=== PATIENT | female | born 1955 | race Caucasian/White ===

== ENCOUNTER 2017-07-03 16:44 | Inpatient (IN) | payer OTHER ==
[~2017-07-03] VITALS: Ht 160 cm; Wt 63.2 kg
[~2017-07-03 16:44] MED LIST: BUPR150T6 PO; CLON-365 PO; ESOM20CA PO; FLUO20TA25 PO; HYDR50CA2 PO; LISI-170 PO; METO50TA82 PO; NIFE20CA PO; SIMV20TA3 PO
[2017-07-03] MEDS ORDERED: SODIUM CHLORIDE 0.9% 1,000ML IVBOLUS ONE (17:00)
[2017-07-03] MEDS ORDERED: SODIUM CHLORIDE FLUSH 10ML SYR IVF ONE (17:00)
[2017-07-03 17:32] LABS: BASOPHILS % (AUTO) 1 % (0-1); EOSINOPHILS # (AUTO) 0.03 x10^3/uL (0-0.4); EOSINOPHILS % (AUTO) 0 % (1-7); LYMPHOCYTES # (AUTO) 3.45 x10^3/uL (1-3.4); LYMPHOCYTES % (AUTO) 32 % (22-44); MD NO; MEAN CORPUSCULAR HEMOGLOBIN 34.1 pg (27.0-34.8); MEAN CORPUSCULAR HGB CONC 34.3 g/dL (32.4-35.8); MEAN CORPUSCULAR VOLUME 99.4 fL (80-100); MONOCYTES # (AUTO) 0.43 x10^3/uL (0.2-0.8); MONOCYTES % (AUTO) 4 % (2-9); NEUTROPHILS # (AUTO) 6.71 x10^3/uL (1.8-6.8); NEUTROPHILS % (AUTO) 63 % (42-75); PLATELET COUNT 391 x10^3/uL (130-400); RED CELL DISTRIBUTION WIDTH 13.5 % (9.6-15.2)
[2017-07-03 17:42] LABS: MICROSCOPIC NOT IND
[2017-07-03 17:44] LABS: ALBUMIN 2.5 g/dL (3.4-5.0); ANION GAP 14 mmol/L (5-15); CALCIUM 8.3 mg/dL (8.5-10.1); CHLORIDE 95 mmol/L (98-107)
[2017-07-03 17:47] LABS: SALICYLATE LEVEL < 1.7 mg/dL (2.8-20.0)
[2017-07-03 17:49] LABS: CULTURE INDICATED? NO
[2017-07-03 17:53] LABS: ACETAMINOPHEN < 2 mcg/mL (10-30); ALANINE AMINOTRANSFERASE 75 U/L (12-78); ALKALINE PHOSPHATASE 258 U/L (45-117); BILIRUBIN,TOTAL 0.7 mg/dL (0.2-1.0); CREATININE 1.19 mg/dL (0.55-1.02); TOTAL PROTEIN 6.9 g/dL (6.4-8.2)
[2017-07-03 19:07] LABS: ACETONE, SERUM Negative (Negative)
[2017-07-03 19:07] LABS: CLOSTRIDIUM DIFFICILE ANTIGEN POSITIVE
[2017-07-03 19:12] LABS: CLOSTRIDIUM DIFFICILE TOXIN NEGATIVE (Negative)
[2017-07-03] MEDS ORDERED: ACETAMINOPHEN 325 MG TABLET PO PRN (19:30)
[2017-07-03] MEDS ORDERED: hydrALAzine 20 MG/ML, 1ML IVPush PRN (19:30)
[2017-07-03] MEDS ORDERED: LORazepam 2 MG/ML, 1ML IV PRN ×3 (19:30)
[2017-07-03 20:43] VITALS: BP 125/80
[2017-07-03 21:05] VITALS: BP 125/80
[2017-07-03] MEDS: METOPROLOL TARTRATE 50 MG TABLET PO SCH (21:52)
[2017-07-03] MEDS: SIMVASTATIN 20 MG TABLET PO SCH (21:53)
[2017-07-03] MEDS: THIAMINE 100 MG, MVI ADULT 10 ML, FOLIC ACID 1 MG in D5%-0.9% NACL 1,000 ML IV SCH (21:53)
[2017-07-03] MEDS: ENOXAPARIN 40 MG/0.4 ML SQ SCH (21:54)
[2017-07-04 03:02] VITALS: BP 151/92
[2017-07-04] MEDS: LORazepam 2 MG/ML, 1ML IV PRN ×4 (03:42→22:54)
[2017-07-04 04:48] LABS: ALANINE AMINOTRANSFERASE 60 U/L (12-78); ALBUMIN 2.3 g/dL (3.4-5.0); ANION GAP 10 mmol/L (5-15); CALCIUM 7.3 mg/dL (8.5-10.1); CHLORIDE 101 mmol/L (98-107); CREATININE 1.13 mg/dL (0.55-1.02)
[2017-07-04 04:50] LABS: ALKALINE PHOSPHATASE 218 U/L (45-117); BILIRUBIN,TOTAL 0.9 mg/dL (0.2-1.0); TOTAL PROTEIN 5.8 g/dL (6.4-8.2)
[2017-07-04 05:09] LABS: BASOPHILS # (AUTO) 0.03 x10^3/uL (0-0.1); BASOPHILS % (AUTO) 0 % (0-1); EOSINOPHILS # (AUTO) 0.08 x10^3/uL (0-0.4); EOSINOPHILS % (AUTO) 1 % (1-7); LYMPHOCYTES # (AUTO) 2.45 x10^3/uL (1-3.4); LYMPHOCYTES % (AUTO) 31 % (22-44); MD NO; MEAN CORPUSCULAR HEMOGLOBIN 33.9 pg (27.0-34.8); MEAN CORPUSCULAR HGB CONC 34.3 g/dL (32.4-35.8); MEAN CORPUSCULAR VOLUME 98.8 fL (80-100); MEAN PLATELET VOLUME 8.2 fL (7.4-10.4); MONOCYTES # (AUTO) 0.45 x10^3/uL (0.2-0.8); MONOCYTES % (AUTO) 6 % (2-9); NEUTROPHILS # (AUTO) 4.94 x10^3/uL (1.8-6.8); NEUTROPHILS % (AUTO) 62 % (42-75); PLATELET COUNT 285 x10^3/uL (130-400); RED BLOOD COUNT 3.16 x10^6/uL (3.82-5.3); RED CELL DISTRIBUTION WIDTH 13.5 % (9.6-15.2)
[2017-07-04] MEDS: D5%-0.9% NACL+KCL 20MEQ 1,000 ML IV SCH ×4 (05:29→22:05)
[2017-07-04 06:39] VITALS: BP 157/97
[2017-07-04] MEDS ORDERED: MAGNESIUM SULFATE PMX 4GM/100M 100 ML IV ONE (08:00)
[2017-07-04] MEDS: LISINOPRIL 20 MG TABLET PO SCH (08:42)
[2017-07-04] MEDS: METOPROLOL TARTRATE 50 MG TABLET PO SCH ×2 (08:43→19:47)
[2017-07-04 12:20] VITALS: BP 99/63
[2017-07-04] MEDS: THIAMINE 100 MG, MVI ADULT 10 ML, FOLIC ACID 1 MG in D5%-0.9% NACL 1,000 ML IV SCH (19:46)
[2017-07-04] MEDS: SIMVASTATIN 20 MG TABLET PO SCH (19:46)
[2017-07-04] MEDS: ENOXAPARIN 40 MG/0.4 ML SQ SCH (19:47)
[2017-07-04 20:00] VITALS: BP 108/74
[2017-07-04] MEDS ORDERED: CALCIUM CARBONATE 500 MG TAB.CHEW PO ONE (23:30)
[2017-07-05 02:00] VITALS: BP 122/74
[2017-07-05] MEDS: D5%-0.9% NACL+KCL 20MEQ 1,000 ML IV SCH (05:07)
[2017-07-05] MEDS: LORazepam 2 MG/ML, 1ML IV PRN ×5 (05:07→20:20)
[2017-07-05 05:31] LABS: BASOPHILS # (AUTO) 0.02 x10^3/uL (0-0.1); BASOPHILS % (AUTO) 0 % (0-1); EOSINOPHILS # (AUTO) 0.18 x10^3/uL (0-0.4); EOSINOPHILS % (AUTO) 3 % (1-7); LYMPHOCYTES # (AUTO) 2.64 x10^3/uL (1-3.4); LYMPHOCYTES % (AUTO) 37 % (22-44); MD NO; MEAN CORPUSCULAR HEMOGLOBIN 34.4 pg (27.0-34.8); MEAN CORPUSCULAR HGB CONC 34.3 g/dL (32.4-35.8); MEAN CORPUSCULAR VOLUME 100.2 fL (80-100); MEAN PLATELET VOLUME 8.3 fL (7.4-10.4); MONOCYTES # (AUTO) 0.31 x10^3/uL (0.2-0.8); MONOCYTES % (AUTO) 4 % (2-9); NEUTROPHILS # (AUTO) 3.95 x10^3/uL (1.8-6.8); NEUTROPHILS % (AUTO) 56 % (42-75); PLATELET COUNT 193 x10^3/uL (130-400); RED BLOOD COUNT 2.73 x10^6/uL (3.82-5.3); RED CELL DISTRIBUTION WIDTH 13.7 % (9.6-15.2)
[2017-07-05 05:40] LABS: ANION GAP 10 mmol/L (5-15); CHLORIDE 110 mmol/L (98-107)
[2017-07-05 05:43] LABS: ALANINE AMINOTRANSFERASE 47 U/L (12-78); ALKALINE PHOSPHATASE 190 U/L (45-117); BILIRUBIN,TOTAL 0.6 mg/dL (0.2-1.0); CALCIUM 7.4 mg/dL (8.5-10.1); CREATININE 1.06 mg/dL (0.55-1.02); TOTAL PROTEIN 5.4 g/dL (6.4-8.2)
[2017-07-05 07:05] VITALS: BP 136/85
[2017-07-05] MEDS: LISINOPRIL 20 MG TABLET PO SCH (08:34)
[2017-07-05] MEDS: METOPROLOL TARTRATE 50 MG TABLET PO SCH ×2 (08:35→20:00)
[2017-07-05] MEDS: SODIUM CHLORIDE 0.9% 1,000 ML IV SCH ×2 (08:53→16:30)
[2017-07-05] MEDS ORDERED: LORazepam 0.5MG TABLET ONE ×2 (10:09→20:18)
[2017-07-05] MEDS ORDERED: FAMOTIDINE 20 MG TABLET ONE (10:09)
[2017-07-05] MEDS: FAMOTIDINE 20 MG TABLET PO SCH ×2 (10:16→20:00)
[2017-07-05] MEDS: ALUMINUM/MAG/SIMETHICONE 30 ML UDC PO PRN (11:45)
[2017-07-05 12:57] VITALS: BP 105/69
[2017-07-05] MEDS ORDERED: LORazepam 1MG TABLET ONE (13:53)
[2017-07-05] MEDS: VANCOMYCIN 50 MG/ML ORAL SUSP PO SCH ×2 (13:56→20:01)
[2017-07-05] MEDS: THIAMINE 100 MG, MVI ADULT 10 ML, FOLIC ACID 1 MG in D5%-0.9% NACL 1,000 ML IV SCH (19:59)
[2017-07-05 20:00] VITALS: BP 121/76
[2017-07-05] MEDS: ENOXAPARIN 40 MG/0.4 ML SQ SCH (20:01)
[2017-07-05] MEDS: SIMVASTATIN 20 MG TABLET PO SCH (20:01)
[2017-07-06] MEDS ORDERED: LORazepam 0.5MG TABLET ONE ×2 (01:10→06:13)
[2017-07-06] MEDS: VANCOMYCIN 50 MG/ML ORAL SUSP PO SCH ×4 (01:14→19:48)
[2017-07-06] MEDS: ALUMINUM/MAG/SIMETHICONE 30 ML UDC PO PRN ×4 (01:14→20:07)
[2017-07-06] MEDS: LORazepam 2 MG/ML, 1ML IV PRN ×4 (01:15→20:07)
[2017-07-06 02:00] VITALS: BP 134/89
[2017-07-06 05:13] LABS: ANION GAP 8 mmol/L (5-15); BASOPHILS # (AUTO) 0.02 x10^3/uL (0-0.1); BASOPHILS % (AUTO) 0 % (0-1); CALCIUM 7.7 mg/dL (8.5-10.1); CHLORIDE 117 mmol/L (98-107); EOSINOPHILS # (AUTO) 0.26 x10^3/uL (0-0.4); EOSINOPHILS % (AUTO) 4 % (1-7); LYMPHOCYTES % (AUTO) 38 % (22-44); MD NO; MEAN CORPUSCULAR HEMOGLOBIN 34.6 pg (27.0-34.8); MEAN CORPUSCULAR HGB CONC 34.2 g/dL (32.4-35.8); MEAN CORPUSCULAR VOLUME 101.3 fL (80-100); MONOCYTES # (AUTO) 0.38 x10^3/uL (0.2-0.8); MONOCYTES % (AUTO) 5 % (2-9); NEUTROPHILS # (AUTO) 3.94 x10^3/uL (1.8-6.8); NEUTROPHILS % (AUTO) 53 % (42-75); PLATELET COUNT 196 x10^3/uL (130-400); RED BLOOD COUNT 2.62 x10^6/uL (3.82-5.3); RED CELL DISTRIBUTION WIDTH 13.5 % (9.6-15.2)
[2017-07-06 05:42] LABS: ALANINE AMINOTRANSFERASE 46 U/L (12-78); ALKALINE PHOSPHATASE 172 U/L (45-117); BILIRUBIN,TOTAL 0.5 mg/dL (0.2-1.0); CREATININE 0.93 mg/dL (0.55-1.02); TOTAL PROTEIN 5.5 g/dL (6.4-8.2)
[2017-07-06 05:45] LABS: FOLATE LEVEL > 20.0 ng/mL (3.1-17.5)
[2017-07-06 07:20] VITALS: BP 124/78
[2017-07-06 08:00] VITALS: BP 137/87
[2017-07-06] MEDS: FAMOTIDINE 20 MG TABLET PO SCH ×2 (09:41→19:48)
[2017-07-06] MEDS: LISINOPRIL 20 MG TABLET PO SCH (09:41)
[2017-07-06] MEDS: METOPROLOL TARTRATE 50 MG TABLET PO SCH ×2 (09:41→19:48)
[2017-07-06] MEDS: LACTATED RINGERS 1,000 ML IV SCH (09:43)
[2017-07-06 12:35] LABS: CRYPTOSPORIDIUM ANTIGEN Negative (Negative)
[2017-07-06 13:09] VITALS: BP 111/75
[2017-07-06 18:47] VITALS: BP 105/71
[2017-07-06] MEDS: ENOXAPARIN 40 MG/0.4 ML SQ SCH (19:48)
[2017-07-06] MEDS: SIMVASTATIN 20 MG TABLET PO SCH (19:48)
[2017-07-06] MEDS: THIAMINE 100 MG, MVI ADULT 10 ML, FOLIC ACID 1 MG in D5%-0.9% NACL 1,000 ML IV SCH (21:28)
[2017-07-07 00:36] VITALS: BP 129/82
[2017-07-07] MEDS: ALUMINUM/MAG/SIMETHICONE 30 ML UDC PO PRN ×4 (02:06→20:30)
[2017-07-07] MEDS: LORazepam 2 MG/ML, 1ML IV PRN ×4 (02:07→21:39)
[2017-07-07] MEDS: VANCOMYCIN 50 MG/ML ORAL SUSP PO SCH ×4 (02:07→20:30)
[2017-07-07] MEDS: LACTATED RINGERS 1,000 ML IV SCH (04:12)
[2017-07-07 05:23] LABS: EOSINOPHILS # (AUTO) 0.28 x10^3/uL (0-0.4); MD NO; RED CELL DISTRIBUTION WIDTH 13.8 % (9.6-15.2)
[2017-07-07 05:34] LABS: BASOPHILS # (AUTO) 0.01 x10^3/uL (0-0.1); BASOPHILS % (AUTO) 0 % (0-1); EOSINOPHILS % (AUTO) 4 % (1-7); LYMPHOCYTES # (AUTO) 2.83 x10^3/uL (1-3.4); LYMPHOCYTES % (AUTO) 35 % (22-44); MEAN CORPUSCULAR HEMOGLOBIN 34.1 pg (27.0-34.8); MEAN CORPUSCULAR HGB CONC 33.7 g/dL (32.4-35.8); MEAN CORPUSCULAR VOLUME 101.2 fL (80-100); MEAN PLATELET VOLUME 8.1 fL (7.4-10.4); MONOCYTES % (AUTO) 6 % (2-9); NEUTROPHILS # (AUTO) 4.42 x10^3/uL (1.8-6.8); NEUTROPHILS % (AUTO) 55 % (42-75); PLATELET COUNT 195 x10^3/uL (130-400); RED BLOOD COUNT 2.63 x10^6/uL (3.82-5.3)
[2017-07-07 05:40] LABS: ALBUMIN 2.1 g/dL (3.4-5.0); CHLORIDE 115 mmol/L (98-107)
[2017-07-07 05:46] LABS: ALANINE AMINOTRANSFERASE 47 U/L (12-78); ALKALINE PHOSPHATASE 175 U/L (45-117); ANION GAP 8 mmol/L (5-15); BILIRUBIN,TOTAL 0.7 mg/dL (0.2-1.0); CALCIUM 7.7 mg/dL (8.5-10.1); CREATININE 1.02 mg/dL (0.55-1.02); TOTAL PROTEIN 5.4 g/dL (6.4-8.2)
[2017-07-07 06:46] VITALS: BP 126/72
[2017-07-07] MEDS ORDERED: MAGNESIUM SULFATE PMX 4GM/100M 100 ML IV ONE (08:00)
[2017-07-07] MEDS: NEUTRA PHOS K 250 MG TABLET PO SCH ×3 (09:23→20:30)
[2017-07-07] MEDS: METOPROLOL TARTRATE 50 MG TABLET PO SCH ×2 (09:23→20:30)
[2017-07-07] MEDS: LISINOPRIL 20 MG TABLET PO SCH (09:23)
[2017-07-07] MEDS: BUPROPION SR 150 MG TABLET PO SCH (09:23)
[2017-07-07] MEDS: FLUOXETINE HCL 20 MG CAPSULE PO SCH (09:23)
[2017-07-07 13:11] VITALS: BP 94/63
[2017-07-07 19:23] VITALS: BP 140/83
[2017-07-07] MEDS: SIMVASTATIN 20 MG TABLET PO SCH (20:30)
[2017-07-07] MEDS: ENOXAPARIN 40 MG/0.4 ML SQ SCH (20:30)
[2017-07-07] MEDS: THIAMINE 100 MG, MVI ADULT 10 ML, FOLIC ACID 1 MG in D5%-0.9% NACL 1,000 ML IV SCH (21:39)
[2017-07-08 00:30] VITALS: BP 143/91
[2017-07-08] MEDS: VANCOMYCIN 50 MG/ML ORAL SUSP PO SCH ×4 (03:33→21:28)
[2017-07-08] MEDS: LACTATED RINGERS 1,000 ML IV SCH ×2 (04:25→13:09)
[2017-07-08] MEDS: ALUMINUM/MAG/SIMETHICONE 30 ML UDC PO PRN ×5 (04:26→21:29)
[2017-07-08 05:15] LABS: BASOPHILS # (AUTO) 0.02 x10^3/uL (0-0.1); BASOPHILS % (AUTO) 0 % (0-1); EOSINOPHILS # (AUTO) 0.21 x10^3/uL (0-0.4); EOSINOPHILS % (AUTO) 3 % (1-7); LYMPHOCYTES % (AUTO) 33 % (22-44); MD NO; MEAN CORPUSCULAR HEMOGLOBIN 33.8 pg (27.0-34.8); MEAN CORPUSCULAR HGB CONC 33.9 g/dL (32.4-35.8); MEAN CORPUSCULAR VOLUME 99.7 fL (80-100); MEAN PLATELET VOLUME 8.2 fL (7.4-10.4); MONOCYTES # (AUTO) 0.65 x10^3/uL (0.2-0.8); MONOCYTES % (AUTO) 8 % (2-9); NEUTROPHILS # (AUTO) 4.45 x10^3/uL (1.8-6.8); NEUTROPHILS % (AUTO) 56 % (42-75); PLATELET COUNT 220 x10^3/uL (130-400); RED BLOOD COUNT 2.65 x10^6/uL (3.82-5.3); RED CELL DISTRIBUTION WIDTH 13.6 % (9.6-15.2)
[2017-07-08 05:21] LABS: ALBUMIN 2.2 g/dL (3.4-5.0); ANION GAP 8 mmol/L (5-15); CHLORIDE 110 mmol/L (98-107)
[2017-07-08 05:26] LABS: ALANINE AMINOTRANSFERASE 45 U/L (12-78); ALKALINE PHOSPHATASE 179 U/L (45-117); BILIRUBIN,TOTAL 0.7 mg/dL (0.2-1.0); CREATININE 0.93 mg/dL (0.55-1.02); TOTAL PROTEIN 5.8 g/dL (6.4-8.2)
[2017-07-08 07:43] VITALS: BP 155/93
[2017-07-08] MEDS: NEUTRA PHOS K 250 MG TABLET PO SCH ×2 (08:34→16:08)
[2017-07-08] MEDS: LISINOPRIL 20 MG TABLET PO SCH (08:34)
[2017-07-08] MEDS: FLUOXETINE HCL 20 MG CAPSULE PO SCH (08:35)
[2017-07-08] MEDS: BUPROPION SR 150 MG TABLET PO SCH (08:35)
[2017-07-08] MEDS: METOPROLOL TARTRATE 50 MG TABLET PO SCH ×2 (08:35→21:29)
[2017-07-08] MEDS ORDERED: LORazepam 1MG TABLET ONE (08:44)
[2017-07-08] MEDS: LORazepam 1MG TABLET PO PRN (08:51)
[2017-07-08] MEDS ORDERED: LORazepam 1MG TABLET PO PRN ×4 (10:30)
[2017-07-08] MEDS: ONDANSETRON ODT 4 MG PO PRN (10:49)
[2017-07-08 12:03] VITALS: BP 105/73
[2017-07-08] MEDS: metroNIDAZOLE 500 MG TABLET PO SCH ×2 (16:08→21:29)
[2017-07-08 21:15] VITALS: BP 125/80
[2017-07-08] MEDS: THIAMINE 100 MG, MVI ADULT 10 ML, FOLIC ACID 1 MG in D5%-0.9% NACL 1,000 ML IV SCH (21:28)
[2017-07-08] MEDS: ENOXAPARIN 40 MG/0.4 ML SQ SCH (21:28)
[2017-07-08] MEDS: SIMVASTATIN 20 MG TABLET PO SCH (21:29)
[2017-07-09 00:11] VITALS: BP 122/79
[2017-07-09] MEDS: VANCOMYCIN 50 MG/ML ORAL SUSP PO SCH ×4 (03:48→21:05)
[2017-07-09] MEDS: LACTATED RINGERS 1,000 ML IV SCH ×3 (03:48→23:00)
[2017-07-09 07:00] VITALS: BP_SYST 134; BP_SYST 93; BP_DIAS 60; BP_DIAS 83
[2017-07-09] MEDS: FLUOXETINE HCL 20 MG CAPSULE PO SCH (09:24)
[2017-07-09] MEDS: BUPROPION SR 150 MG TABLET PO SCH (09:24)
[2017-07-09] MEDS: ONDANSETRON ODT 4 MG PO PRN (09:25)
[2017-07-09] MEDS: metroNIDAZOLE 500 MG TABLET PO SCH ×3 (09:25→21:04)
[2017-07-09] MEDS: LISINOPRIL 20 MG TABLET PO SCH (09:25)
[2017-07-09] MEDS: METOPROLOL TARTRATE 50 MG TABLET PO SCH ×2 (09:25→21:04)
[2017-07-09] MEDS: ALUMINUM/MAG/SIMETHICONE 30 ML UDC PO PRN ×2 (09:41→15:34)
[2017-07-09] MEDS: LORazepam 1MG TABLET PO PRN (09:42)
[2017-07-09 14:00] VITALS: BP 122/75
[2017-07-09 18:55] VITALS: BP 121/82
[2017-07-09] MEDS: THIAMINE 100 MG, MVI ADULT 10 ML, FOLIC ACID 1 MG in D5%-0.9% NACL 1,000 ML IV SCH (21:03)
[2017-07-09] MEDS: ENOXAPARIN 40 MG/0.4 ML SQ SCH (21:04)
[2017-07-09] MEDS: FAMOTIDINE 20 MG TABLET PO SCH (21:04)
[2017-07-09] MEDS: SIMVASTATIN 20 MG TABLET PO SCH (21:04)
[2017-07-10 02:19] VITALS: BP 146/89
[2017-07-10 02:32] VITALS: BP 147/88
[2017-07-10] MEDS: ALUMINUM/MAG/SIMETHICONE 30 ML UDC PO PRN (02:50)
[2017-07-10] MEDS: VANCOMYCIN 50 MG/ML ORAL SUSP PO SCH ×4 (02:51→20:42)
[2017-07-10 05:09] LABS: BASOPHILS # (AUTO) 0.02 x10^3/uL (0-0.1); BASOPHILS % (AUTO) 1 % (0-1); EOSINOPHILS # (AUTO) 0.11 x10^3/uL (0-0.4); EOSINOPHILS % (AUTO) 2 % (1-7); LYMPHOCYTES # (AUTO) 1.59 x10^3/uL (1-3.4); LYMPHOCYTES % (AUTO) 33 % (22-44); MD NO; MEAN CORPUSCULAR HEMOGLOBIN 34.5 pg (27.0-34.8); MEAN CORPUSCULAR HGB CONC 34.4 g/dL (32.4-35.8); MEAN CORPUSCULAR VOLUME 100.5 fL (80-100); MEAN PLATELET VOLUME 8.1 fL (7.4-10.4); MONOCYTES # (AUTO) 0.83 x10^3/uL (0.2-0.8); MONOCYTES % (AUTO) 17 % (2-9); NEUTROPHILS # (AUTO) 2.34 x10^3/uL (1.8-6.8); NEUTROPHILS % (AUTO) 48 % (42-75); PLATELET COUNT 327 x10^3/uL (130-400); RED BLOOD COUNT 2.59 x10^6/uL (3.82-5.3); RED CELL DISTRIBUTION WIDTH 13.9 % (9.6-15.2)
[2017-07-10 05:15] LABS: ALBUMIN 2.1 g/dL (3.4-5.0); ANION GAP 9 mmol/L (5-15); CALCIUM 8.1 mg/dL (8.5-10.1); CHLORIDE 108 mmol/L (98-107)
[2017-07-10 05:18] LABS: ALANINE AMINOTRANSFERASE 45 U/L (12-78); ALKALINE PHOSPHATASE 215 U/L (45-117); BILIRUBIN,TOTAL 0.9 mg/dL (0.2-1.0); CREATININE 1.04 mg/dL (0.55-1.02); TOTAL PROTEIN 5.9 g/dL (6.4-8.2)
[2017-07-10 07:51] VITALS: BP 126/80
[2017-07-10] MEDS ORDERED: SODIUM PHOSPHATE 4 MEQ/ML IV SCH (09:00)
[2017-07-10] MEDS ORDERED: SODIUM PHOSPHATE 30 MMOL in SODIUM CHLORIDE 0.9% 500 ML IV ONE (09:00)
[2017-07-10] MEDS ORDERED: MAGNESIUM SULFATE PMX 4GM/100M 100 ML IV ONE (09:00)
[2017-07-10] MEDS: LACTATED RINGERS 1,000 ML IV SCH ×2 (10:05→20:40)
[2017-07-10] MEDS: FAMOTIDINE 20 MG TABLET PO SCH ×2 (10:06→20:42)
[2017-07-10] MEDS: FLUOXETINE HCL 20 MG CAPSULE PO SCH (10:06)
[2017-07-10] MEDS: THIAMINE 100MG TABLET PO SCH ×2 (10:06→20:41)
[2017-07-10] MEDS: metroNIDAZOLE 500 MG TABLET PO SCH ×3 (10:06→20:41)
[2017-07-10] MEDS: FOLIC ACID 1 MG TABLET PO SCH (10:07)
[2017-07-10] MEDS: BUPROPION SR 150 MG TABLET PO SCH (10:07)
[2017-07-10] MEDS: METOPROLOL TARTRATE 50 MG TABLET PO SCH ×2 (10:07→20:42)
[2017-07-10] MEDS: LISINOPRIL 20 MG TABLET PO SCH (10:07)
[2017-07-10 12:27] VITALS: BP 89/56
[2017-07-10] MEDS ORDERED: LORazepam 0.5MG TABLET PO ONE (13:00)
[2017-07-10] MEDS: ONDANSETRON ODT 4 MG PO PRN (15:31)
[2017-07-10 20:00] VITALS: BP_SYST 103; BP_SYST 129; BP_DIAS 62; BP_DIAS 78
[2017-07-10] MEDS: SIMVASTATIN 20 MG TABLET PO SCH (20:41)
[2017-07-10] MEDS: LORazepam 1MG TABLET PO PRN (20:42)
[2017-07-10] MEDS: ENOXAPARIN 40 MG/0.4 ML SQ SCH (20:51)
[2017-07-11 02:00] VITALS: BP 133/79
[2017-07-11] MEDS: VANCOMYCIN 50 MG/ML ORAL SUSP PO SCH ×4 (04:16→22:15)
[2017-07-11 06:34] VITALS: BP 144/85
[2017-07-11 07:10] LABS: BASOPHILS # (AUTO) 0.02 x10^3/uL (0-0.1); BASOPHILS % (AUTO) 0 % (0-1); EOSINOPHILS # (AUTO) 0.06 x10^3/uL (0-0.4); EOSINOPHILS % (AUTO) 1 % (1-7); LYMPHOCYTES # (AUTO) 1.34 x10^3/uL (1-3.4); LYMPHOCYTES % (AUTO) 28 % (22-44); MD NO; MEAN CORPUSCULAR HEMOGLOBIN 33.7 pg (27.0-34.8); MEAN CORPUSCULAR HGB CONC 33.9 g/dL (32.4-35.8); MEAN CORPUSCULAR VOLUME 99.6 fL (80-100); MEAN PLATELET VOLUME 7.8 fL (7.4-10.4); MONOCYTES # (AUTO) 0.77 x10^3/uL (0.2-0.8); MONOCYTES % (AUTO) 16 % (2-9); NEUTROPHILS # (AUTO) 2.56 x10^3/uL (1.8-6.8); NEUTROPHILS % (AUTO) 54 % (42-75); PLATELET COUNT 361 x10^3/uL (130-400); RED CELL DISTRIBUTION WIDTH 14.3 % (9.6-15.2)
[2017-07-11 07:21] LABS: ALANINE AMINOTRANSFERASE 38 U/L (12-78); ALBUMIN 2.1 g/dL (3.4-5.0); ANION GAP 10 mmol/L (5-15); CALCIUM 7.9 mg/dL (8.5-10.1); CHLORIDE 109 mmol/L (98-107); CREATININE 0.95 mg/dL (0.55-1.02)
[2017-07-11 07:23] LABS: ALKALINE PHOSPHATASE 208 U/L (45-117); BILIRUBIN,TOTAL 0.6 mg/dL (0.2-1.0); TOTAL PROTEIN 5.6 g/dL (6.4-8.2)
[2017-07-11] MEDS ORDERED: POTASSIUM CHLORIDE 20 MEQ TAB.ER.PRT PO ONE ×2 (08:00→11:30)
[2017-07-11] MEDS: FOLIC ACID 1 MG TABLET PO SCH (08:28)
[2017-07-11] MEDS: METOPROLOL TARTRATE 50 MG TABLET PO SCH ×2 (08:28→20:23)
[2017-07-11] MEDS: LISINOPRIL 20 MG TABLET PO SCH (08:28)
[2017-07-11] MEDS: metroNIDAZOLE 500 MG TABLET PO SCH ×3 (08:28→20:23)
[2017-07-11] MEDS: FAMOTIDINE 20 MG TABLET PO SCH ×2 (08:28→20:23)
[2017-07-11] MEDS: BUPROPION SR 150 MG TABLET PO SCH (08:28)
[2017-07-11] MEDS: THIAMINE 100MG TABLET PO SCH ×2 (08:29→20:23)
[2017-07-11] MEDS: FLUOXETINE HCL 20 MG CAPSULE PO SCH (08:29)
[2017-07-11] MEDS: ONDANSETRON ODT 4 MG PO PRN ×3 (08:39→16:51)
[2017-07-11] MEDS: LACTATED RINGERS 1,000 ML IV SCH ×2 (09:21→20:23)
[2017-07-11] MEDS: LORazepam 1MG TABLET PO PRN ×2 (09:21→22:23)
[2017-07-11 12:33] VITALS: BP 94/60
[2017-07-11 20:00] VITALS: BP 144/80
[2017-07-11] MEDS: ENOXAPARIN 40 MG/0.4 ML SQ SCH (20:23)
[2017-07-11] MEDS: SIMVASTATIN 20 MG TABLET PO SCH (20:24)
[2017-07-12 02:00] VITALS: BP 134/80
[2017-07-12] MEDS: VANCOMYCIN 50 MG/ML ORAL SUSP PO SCH ×4 (04:04→20:18)
[2017-07-12] MEDS: LORazepam 1MG TABLET PO PRN (04:09)
[2017-07-12] MEDS: LACTATED RINGERS 1,000 ML IV SCH ×3 (07:00→22:50)
[2017-07-12 08:14] VITALS: BP 150/87
[2017-07-12] MEDS: THIAMINE 100MG TABLET PO SCH ×2 (08:52→20:17)
[2017-07-12] MEDS: metroNIDAZOLE 500 MG TABLET PO SCH ×3 (08:53→20:17)
[2017-07-12] MEDS: LISINOPRIL 20 MG TABLET PO SCH (08:53)
[2017-07-12] MEDS: FLUOXETINE HCL 20 MG CAPSULE PO SCH (08:53)
[2017-07-12] MEDS: BUPROPION SR 150 MG TABLET PO SCH (08:53)
[2017-07-12] MEDS: FOLIC ACID 1 MG TABLET PO SCH (08:53)
[2017-07-12] MEDS: METOPROLOL TARTRATE 50 MG TABLET PO SCH (08:53)
[2017-07-12] MEDS: ALUMINUM/MAG/SIMETHICONE 30 ML UDC PO PRN ×3 (10:25→20:30)
[2017-07-12] MEDS: HYDROXYZINE PAMOATE 50MG CAP PO SCH ×3 (10:25→20:17)
[2017-07-12 10:49] VITALS: BP 90/57
[2017-07-12 12:10] VITALS: BP 93/58
[2017-07-12 19:50] VITALS: BP 134/82
[2017-07-12] MEDS: SIMVASTATIN 20 MG TABLET PO SCH (20:17)
[2017-07-12] MEDS: ENOXAPARIN 40 MG/0.4 ML SQ SCH (20:18)
[2017-07-12] MEDS: METOPROLOL TARTRATE 25 MG TABLET PO SCH (20:18)
[2017-07-13] MEDS: VANCOMYCIN 50 MG/ML ORAL SUSP PO SCH ×4 (03:03→21:17)
[2017-07-13] MEDS: ALUMINUM/MAG/SIMETHICONE 30 ML UDC PO PRN ×4 (03:10→21:00)
[2017-07-13 03:13] VITALS: BP 131/84
[2017-07-13] MEDS: HYDROXYZINE PAMOATE 50MG CAP PO SCH ×4 (05:18→21:00)
[2017-07-13 07:16] VITALS: BP 130/74
[2017-07-13] MEDS: metroNIDAZOLE 500 MG TABLET PO SCH ×3 (08:11→21:00)
[2017-07-13] MEDS: THIAMINE 100MG TABLET PO SCH ×2 (08:11→21:01)
[2017-07-13] MEDS: BUPROPION SR 150 MG TABLET PO SCH (08:11)
[2017-07-13] MEDS: METOPROLOL TARTRATE 25 MG TABLET PO SCH ×2 (08:11→21:01)
[2017-07-13] MEDS: FLUOXETINE HCL 20 MG CAPSULE PO SCH (08:11)
[2017-07-13] MEDS: LACTATED RINGERS 1,000 ML IV SCH ×2 (08:12→18:33)
[2017-07-13] MEDS: FOLIC ACID 1 MG TABLET PO SCH (08:13)
[2017-07-13 08:18] LABS: ALBUMIN 2.1 g/dL (3.4-5.0); ANION GAP 8 mmol/L (5-15); CALCIUM 8.3 mg/dL (8.5-10.1); CHLORIDE 108 mmol/L (98-107); CREATININE 1.16 mg/dL (0.55-1.02)
[2017-07-13 08:22] LABS: BASOPHILS # (AUTO) 0.01 x10^3/uL (0-0.1); BASOPHILS % (AUTO) 0 % (0-1); EOSINOPHILS # (AUTO) 0.05 x10^3/uL (0-0.4); EOSINOPHILS % (AUTO) 1 % (1-7); LYMPHOCYTES # (AUTO) 1.96 x10^3/uL (1-3.4); LYMPHOCYTES % (AUTO) 30 % (22-44); MD NO; MEAN CORPUSCULAR HEMOGLOBIN 33.2 pg (27.0-34.8); MEAN CORPUSCULAR HGB CONC 32.9 g/dL (32.4-35.8); MEAN PLATELET VOLUME 8.3 fL (7.4-10.4); MONOCYTES # (AUTO) 0.86 x10^3/uL (0.2-0.8); MONOCYTES % (AUTO) 13 % (2-9); NEUTROPHILS # (AUTO) 3.71 x10^3/uL (1.8-6.8); NEUTROPHILS % (AUTO) 56 % (42-75); PLATELET COUNT 385 x10^3/uL (130-400); RED BLOOD COUNT 2.47 x10^6/uL (3.82-5.3); RED CELL DISTRIBUTION WIDTH 14.7 % (9.6-15.2)
[2017-07-13 13:45] VITALS: BP 132/86
[2017-07-13 19:42] VITALS: BP 141/86
[2017-07-13] MEDS: SIMVASTATIN 20 MG TABLET PO SCH (21:01)
[2017-07-13] MEDS: ENOXAPARIN 40 MG/0.4 ML SQ SCH (21:17)
[2017-07-14 03:38] VITALS: BP 130/83
[2017-07-14] MEDS: VANCOMYCIN 50 MG/ML ORAL SUSP PO SCH ×4 (03:56→20:35)
[2017-07-14] MEDS: LACTATED RINGERS 1,000 ML IV SCH ×2 (04:07→15:30)
[2017-07-14] MEDS: ALUMINUM/MAG/SIMETHICONE 30 ML UDC PO PRN ×2 (04:07→11:15)
[2017-07-14] MEDS: HYDROXYZINE PAMOATE 50MG CAP PO SCH ×4 (06:05→20:35)
[2017-07-14 06:36] LABS: ALBUMIN 2.3 g/dL (3.4-5.0); ANION GAP 9 mmol/L (5-15); CALCIUM 8.5 mg/dL (8.5-10.1); CHLORIDE 106 mmol/L (98-107)
[2017-07-14 06:37] LABS: CREATININE 1.15 mg/dL (0.55-1.02)
[2017-07-14 07:05] VITALS: BP 136/89
[2017-07-14] MEDS: FLUOXETINE HCL 20 MG CAPSULE PO SCH (10:03)
[2017-07-14] MEDS: METOPROLOL TARTRATE 25 MG TABLET PO SCH ×2 (10:03→20:35)
[2017-07-14] MEDS: BUPROPION SR 150 MG TABLET PO SCH (10:03)
[2017-07-14] MEDS: metroNIDAZOLE 500 MG TABLET PO SCH ×3 (10:03→20:35)
[2017-07-14] MEDS: THIAMINE 100MG TABLET PO SCH ×2 (10:03→20:35)
[2017-07-14] MEDS: FOLIC ACID 1 MG TABLET PO SCH (10:04)
[2017-07-14 15:23] VITALS: BP 130/82
[2017-07-14 20:03] VITALS: BP 153/93
[2017-07-14] MEDS ORDERED: CALCIUM CARBONATE 500 MG TAB.CHEW ONE (20:25)
[2017-07-14] MEDS: SIMVASTATIN 20 MG TABLET PO SCH (20:35)
[2017-07-14] MEDS: CALCIUM CARBONATE 500 MG TAB.CHEW PO PRN (20:35)
[2017-07-14] MEDS: ENOXAPARIN 40 MG/0.4 ML SQ SCH (20:39)
[2017-07-15] MEDS: LACTATED RINGERS 1,000 ML IV SCH ×2 (02:00→12:39)
[2017-07-15 03:50] VITALS: BP 130/81
[2017-07-15] MEDS: VANCOMYCIN 50 MG/ML ORAL SUSP PO SCH ×4 (04:02→21:59)
[2017-07-15] MEDS: CALCIUM CARBONATE 500 MG TAB.CHEW PO PRN ×3 (04:10→21:59)
[2017-07-15] MEDS: HYDROXYZINE PAMOATE 50MG CAP PO SCH ×4 (05:17→22:00)
[2017-07-15 06:37] LABS: ALBUMIN 2.2 g/dL (3.4-5.0); ANION GAP 7 mmol/L (5-15); CALCIUM 8.5 mg/dL (8.5-10.1); CHLORIDE 109 mmol/L (98-107)
[2017-07-15 07:51] VITALS: BP 134/78
[2017-07-15] MEDS: BUPROPION SR 150 MG TABLET PO SCH (09:28)
[2017-07-15] MEDS: THIAMINE 100MG TABLET PO SCH ×2 (09:28→22:00)
[2017-07-15] MEDS: FLUOXETINE HCL 20 MG CAPSULE PO SCH (09:28)
[2017-07-15] MEDS: FOLIC ACID 1 MG TABLET PO SCH (09:29)
[2017-07-15] MEDS: METOPROLOL TARTRATE 25 MG TABLET PO SCH ×2 (09:29→22:46)
[2017-07-15] MEDS: metroNIDAZOLE 500 MG TABLET PO SCH ×3 (09:29→22:00)
[2017-07-15] MEDS ORDERED: LORazepam 0.5MG TABLET PO ONE (15:00)
[2017-07-15 20:02] VITALS: BP 132/81
[2017-07-15] MEDS: SIMVASTATIN 20 MG TABLET PO SCH (22:00)
[2017-07-15] MEDS: ENOXAPARIN 40 MG/0.4 ML SQ SCH (22:01)
[2017-07-16 01:18] VITALS: BP 128/79
[2017-07-16] MEDS: CALCIUM CARBONATE 500 MG TAB.CHEW PO PRN ×3 (02:36→22:18)
[2017-07-16] MEDS: LACTATED RINGERS 1,000 ML IV SCH ×3 (02:59→19:22)
[2017-07-16] MEDS: VANCOMYCIN 50 MG/ML ORAL SUSP PO SCH ×4 (04:09→22:17)
[2017-07-16] MEDS: HYDROXYZINE PAMOATE 50MG CAP PO SCH ×4 (05:53→22:18)
[2017-07-16 07:30] VITALS: BP 121/79
[2017-07-16] MEDS: METOPROLOL TARTRATE 25 MG TABLET PO SCH ×2 (09:29→22:26)
[2017-07-16] MEDS: FOLIC ACID 1 MG TABLET PO SCH (09:29)
[2017-07-16] MEDS: THIAMINE 100MG TABLET PO SCH ×2 (09:29→22:18)
[2017-07-16] MEDS: FLUOXETINE HCL 20 MG CAPSULE PO SCH (09:29)
[2017-07-16] MEDS: metroNIDAZOLE 500 MG TABLET PO SCH ×3 (09:29→22:18)
[2017-07-16] MEDS: BUPROPION SR 150 MG TABLET PO SCH (09:29)
[2017-07-16 15:58] VITALS: BP 143/85
[2017-07-16] MEDS: LACTOBACILLUS CHEW TABLET PO SCH ×2 (15:59→22:18)
[2017-07-16 20:37] VITALS: BP 144/82
[2017-07-16] MEDS: SIMVASTATIN 20 MG TABLET PO SCH (22:17)
[2017-07-16] MEDS: ENOXAPARIN 40 MG/0.4 ML SQ SCH (22:26)
[2017-07-17 01:13] VITALS: BP 134/81
[2017-07-17] MEDS: CALCIUM CARBONATE 500 MG TAB.CHEW PO PRN ×3 (02:55→10:25)
[2017-07-17] MEDS: VANCOMYCIN 50 MG/ML ORAL SUSP PO SCH ×3 (04:32→16:21)
[2017-07-17] MEDS: LACTATED RINGERS 1,000 ML IV SCH ×2 (04:32→10:36)
[2017-07-17] MEDS: HYDROXYZINE PAMOATE 50MG CAP PO SCH ×3 (06:30→16:21)
[2017-07-17 07:45] VITALS: BP 132/88
[2017-07-17] MEDS: metroNIDAZOLE 500 MG TABLET PO SCH ×2 (08:30→16:21)
[2017-07-17] MEDS: THIAMINE 100MG TABLET PO SCH (08:30)
[2017-07-17] MEDS: LACTOBACILLUS CHEW TABLET PO SCH ×2 (08:30→16:21)
[2017-07-17] MEDS: BUPROPION SR 150 MG TABLET PO SCH (08:30)
[2017-07-17] MEDS: FLUOXETINE HCL 20 MG CAPSULE PO SCH (08:30)
[2017-07-17] MEDS: FOLIC ACID 1 MG TABLET PO SCH (08:30)
[2017-07-17] MEDS: METOPROLOL TARTRATE 25 MG TABLET PO SCH (08:43)
[2017-07-17 11:09] VITALS: BP_SYST 119; BP_SYST 120; BP_SYST 142; BP_DIAS 79; BP_DIAS 80; BP_DIAS 90
[2017-07-17 12:29] VITALS: BP 138/89
[2017-07-17] MEDS ORDERED: METR500T PO (13:14)
[2017-07-17] MEDS ORDERED: VANC125C11 PO (13:14)
[2017-07-17] MEDS ORDERED: METO25TA35 PO (13:14)
[2017-07-17] MEDS ORDERED: SODIUM CHLORIDE 0.9% 1,000ML IVBOLUS ONE (13:30)
[2017-07-17 14:29] VITALS: BP 144/86
[2017-07-17] MEDS ORDERED: PNEUMOCOCCAL 23 VACCINE IM-VACC ONE (16:00)
== END 2017-07-17 17:00 | disposition home or self-care (01) | DRG 371 ==
LOC: ED 18:04 → EDIP 18:50 → 4WST 20:27
PROVIDERS: ADMIT Hospitalist; ATTEND Hospitalist
PROC: 0T9B70Z Drainage of Bladder with Drainage Device, Via Natural or Artificial Opening (ICD-10-PCS; principal; 2017-07-03)
PROC: 5A1D70Z Performance of Urinary Filtration, Intermittent, Less than 6 Hours Per Day (ICD-10-PCS; 2017-07-05)
DX: A04.72 Enterocolitis due to Clostridium difficile, not specified as recurrent (principal); E43 Unspecified severe protein-calorie malnutrition; E87.1 Hypo-osmolality and hyponatremia; E87.2 Acidosis; R45.851 Suicidal ideations; D53.9 Nutritional anemia, unspecified; Z68.24 Body mass index [BMI] 24.0-24.9, adult; E78.00 Pure hypercholesterolemia, unspecified; E78.5 Hyperlipidemia, unspecified; E83.42 Hypomagnesemia; E86.0 Dehydration; F32.9 Major depressive disorder, single episode, unspecified; I10 Essential (primary) hypertension; N28.9 Disorder of kidney and ureter, unspecified; R62.7 Adult failure to thrive; Z79.899 Other long term (current) drug therapy; Z87.891 Personal history of nicotine dependence; Z90.710 Acquired absence of both cervix and uterus; Z91.14 Patient's other noncompliance with medication regimen; Z88.2 Allergy status to sulfonamides; F10.229 Alcohol dependence with intoxication, unspecified; Z23 Encounter for immunization
CPT/HCPCS: 36415; 71045; 80048; 80053; 80307; 80329; 81003; 82010; 82040; 82607; 82746; 82800; 83690; 83735; 84100; 84443; 85025; 87046; 87324; 87328; 87329; 87427; 87493; 89055; 90732; 93005; 99285; J1650; J3370; J3411; J7042; Q0162; G0480; J2060; J3475; J3480; J7030; J7040; J7120